=== PATIENT | female | born 1935 | race Caucasian/White ===

== ENCOUNTER 2017-02-10 18:58 | Emergency (ER) | payer OTHER ==
[~2017-02-10] VITALS: Ht 157.5 cm; Wt 75.0 kg
[~2017-02-10 18:58] MED LIST: ADULT LOW DOSE81 M1 PO; ALEVE220 MG PO; ATORVASTATIN CA10 MG PO; Aspirin E.C. PO; CLEOCIN300 MG PO; CLOPIDOGREL75 MG PO; COUMADIN5 MG PO; GENTEAL MILD25 ML BOTH EYES; HYDROCODON-ACE1 EAC7 PO; LASIX40 MG PO; LISINOPRIL-HCT1 EAC3 PO; LOPRESSOR25 MG PO; LOVENOX80 MG/0.8 SC; METFORMIN HCL1000 MG PO; METFORMIN HCL500 MG PO; PERCOCET 5/31 TABLET PO; PLAVIX75 MG PO; PRAVASTATIN SOD80 MG PO; PROTONIX40 MG PO; SENNA-TIME S T1 EACH PO; TYLENOL EXTRA500 MG PO; ZOFRAN4 MG PO
[2017-02-10] MEDS ORDERED: PREDNISONE50 MG PO (22:24)
[2017-02-10] MEDS ORDERED: MOTRIN600 MG PO (22:24)
[2017-02-10] MEDS ORDERED: KEFLEX500 MG PO (22:24)
[2017-02-10] MEDS ORDERED: NORCO 5/3251 TABLET PO (22:24)
[2017-02-10 23:35] VITALS: BP 168/81
== END 2017-02-10 23:35 | disposition home or self-care (01) ==
LOC: EME 18:58
PROC: 2W3FX1Z Immobilization of Left Hand using Splint (ICD-10-PCS; principal; 2017-02-10)
DX: M10.9 Gout, unspecified (principal); M25.542 Pain in joints of left hand
CPT/HCPCS: 73130; 99281; 99284; J3010; J7512

== ENCOUNTER 2017-03-31 13:00 | Inpatient (IN) | payer OTHER ==
[~2017-03-31] VITALS: Ht 157.5 cm; Wt 73.8 kg
[~2017-03-31 13:00] MED LIST changes: +KEFLEX500 MG PO; +MOTRIN600 MG PO; +NORCO 5/3251 TABLET PO; +PREDNISONE50 MG PO
[2017-03-31 13:53] LABS: MCH 28.8 PG (29.0-34.0); MCHC 32.4 G/DL (30.0-36.0); MEAN PLAT.VOLUME 8.8 uM^3 (9.5-12.4); PLATELET COUNT 294 K/uL (156-360); RBC DIS.WIDTH-CV 13.3 % (11.8-14.6); RBC DIS.WIDTH-SD 43.5 % (39-53); RED BLOOD COUNT 3.82 M/uL (3.80-5.20)
[2017-03-31 14:03] LABS: CHLORIDE 99 mEq/L (99-109); POTASSIUM 3.7 mEq/L (3.7-5.4); SODIUM 139 mEq/L (136-147)
[2017-03-31 14:04] LABS: GLUCOSE 148 mg/dL (70-99)
[2017-03-31 14:06] LABS: ANION GAP 14 MEQ/L (2-14)
[2017-03-31 14:08] LABS: GFR ESTIMATE (CALCULATED) 46 mL/min/
[2017-03-31 14:09] LABS: UREA NITROGEN (BUN) 20 mg/dL (9-23)
[2017-03-31 14:16] LABS: INTER. NORMALIZED RATIO 1.1; PROTHROMBIN TIME 11.6 (9.2-11.2); PTT 24.4 (25-32); TROP-I INTERPRETATION NEGATIVE; TROPONIN-I 0.23 ng/mL (0.0-0.30)
[2017-03-31] MEDS ORDERED: CLOPIDOGREL75 MG PO (16:49)
[2017-03-31] MEDS ORDERED: PRAVASTATIN SOD20 MG PO (16:50)
[2017-03-31] MEDS ORDERED: DIGOXIN125 MCG PO (16:51)
[2017-03-31 18:31] LABS: HDL CHOLESTEROL 28 MG/DL (Desirable>=50); LDL CHOLESTEROL 46 mg/dL (Desirable<100); NON-HDL CHOLESTEROL 75 mg/dL (Desirable<160); TOTAL CHOLESTEROL 103 mg/dL (Desirable<200); TRIGLYCERIDES 144 MG/DL (Normal: <150)
[2017-03-31 21:28] VITALS: BP 194/93
[2017-04-01 00:22] VITALS: BP 172/80
[2017-04-01 01:42] LABS: TROP-I INTERPRETATION POSITIVE; TROPONIN-I 1.39 ng/mL (0.0-0.30)
[2017-04-01 05:39] LABS: EOSINOPHIL (%) 1.2 % (0-5); EOSINOPHIL COUNT 0.1 K/uL (0-0.3); HEMATOCRIT 32.9 % (36.0-46.0); IMMATURE GRANULOCYTE (%) 0.4 % (0.0-0.7); INSTRUMENT ABS NEUTROPHIL CT 6.8 K/uL; LYMPHOCYTE COUNT 1.3 K/uL (1.0-2.8); MCH 29.7 PG (29.0-34.0); MCHC 32.8 G/DL (30.0-36.0); MCV 90.4 FL (83-99); MEAN PLAT.VOLUME 9.2 uM^3 (9.5-12.4); MONOCYTE (%) 13.3 % (3-12); MONOCYTE COUNT 1.3 K/uL (0-0.8); NEUTROPHIL (%) 71.1 % (45-76); NEUTROPHIL COUNT 6.8 K/uL (1.8-6.4); PLATELET COUNT 294 K/uL (156-360); RBC DIS.WIDTH-CV 13.2 % (11.8-14.6); RBC DIS.WIDTH-SD 43.9 % (39-53); RED BLOOD COUNT 3.64 M/uL (3.80-5.20); WHITE BLOOD COUNT 9.6 K/uL (4.1-10.2)
[2017-04-01 05:54] LABS: INTER. NORMALIZED RATIO 1.1; PROTHROMBIN TIME 11.7 (9.2-11.2); PTT 24.4 (25-32)
[2017-04-01 05:57] LABS: TROP-I INTERPRETATION POSITIVE; TROPONIN-I 1.49 ng/mL (0.0-0.30)
[2017-04-01 06:05] LABS: ANION GAP 12 MEQ/L (2-14); CHLORIDE 103 MEQ/L (99-109); GFR ESTIMATE (CALCULATED) 42 mL/min/; GLUCOSE 137 mg/dL (70-99); SAMPLE HEMOLYSIS CHECK 0; SAMPLE ICTERIC CHECK 0; SAMPLE LIPEMIA CHECK 0; SODIUM 143 MEQ/L (136-147); UREA NITROGEN (BUN) 19 mg/dL (9-23)
[2017-04-01 06:06] LABS: POTASSIUM 4.5 MEQ/L (3.7-5.4)
[2017-04-01 07:19] LABS: Estimated Average Glucose 174 mg/dL (70-123); HEMOGLOBIN A1c (GLYCOHEMOGLOB) 7.7 % HGB (Below 5.7)
[2017-04-01 08:17] VITALS: BP 153/76
[2017-04-01 12:57] VITALS: BP 175/84
[2017-04-01 13:17] LABS: POINT-OF-CARE METER ID UU13113717
[2017-04-01 14:01] LABS: TROP-I INTERPRETATION POSITIVE; TROPONIN-I 0.99 ng/mL (0.0-0.30)
[2017-04-01 16:05] VITALS: BP 145/80
[2017-04-01 20:03] VITALS: BP 140/64
[2017-04-01 23:36] VITALS: BP 139/69
[2017-04-02 04:09] VITALS: BP 200/92
[2017-04-02 05:50] LABS: HEMATOCRIT 35.3 % (36.0-46.0); MCH 28.5 PG (29.0-34.0); MCV 89.1 FL (83-99); MEAN PLAT.VOLUME 9.2 uM^3 (9.5-12.4); PLATELET COUNT 314 K/uL (156-360); RBC DIS.WIDTH-CV 13.2 % (11.8-14.6); RBC DIS.WIDTH-SD 43.6 % (39-53); RED BLOOD COUNT 3.96 M/uL (3.80-5.20); WHITE BLOOD COUNT 10.4 K/uL (4.1-10.2)
[2017-04-02 06:12] LABS: ANION GAP 12 MEQ/L (2-14); CHLORIDE 100 MEQ/L (99-109); GFR ESTIMATE (CALCULATED) 51 mL/min/; GLUCOSE 119 mg/dL (70-99); POTASSIUM 3.8 MEQ/L (3.7-5.4); SAMPLE HEMOLYSIS CHECK 0; SAMPLE ICTERIC CHECK 0; SAMPLE LIPEMIA CHECK 0; SODIUM 141 MEQ/L (136-147); UREA NITROGEN (BUN) 19 mg/dL (9-23)
[2017-04-02 07:20] VITALS: BP 175/87
[2017-04-02 11:25] VITALS: BP 164/82
[2017-04-02 12:23] LABS: POINT-OF-CARE METER ID UU13113717
[2017-04-02 15:30] VITALS: BP 160/80
[2017-04-02 16:27] LABS: POINT-OF-CARE METER ID UU13113717
[2017-04-02 20:05] VITALS: BP 173/83
[2017-04-02 23:48] VITALS: BP 176/102
[2017-04-03 03:42] VITALS: BP 164/98
[2017-04-03 05:41] LABS: HEMATOCRIT 32.4 % (36.0-46.0); MCH 29.9 PG (29.0-34.0); MCHC 33.6 G/DL (30.0-36.0); MEAN PLAT.VOLUME 9.5 uM^3 (9.5-12.4); PLATELET COUNT 291 K/uL (156-360); RBC DIS.WIDTH-CV 13.4 % (11.8-14.6); RBC DIS.WIDTH-SD 43.8 % (39-53); RED BLOOD COUNT 3.64 M/uL (3.80-5.20); WHITE BLOOD COUNT 10.8 K/uL (4.1-10.2)
[2017-04-03 08:00] LABS: POINT-OF-CARE METER ID UU14174225
[2017-04-03 08:20] VITALS: BP 195/90
[2017-04-03 11:03] VITALS: BP 173/79
[2017-04-03 11:42] LABS: POINT-OF-CARE METER ID UU14174225
[2017-04-03 16:11] LABS: ADD MIUA? YES; BILIRUBIN NEGATIVE; BLOOD SMALL; COLOR YELLOW ((YELLOW)); GLUCOSE (STRIP) NEGATIVE; KETONES 5; LEUKOCYTES LARGE; NITRITE NEGATIVE; PROTEIN (STRIP) 30; SPECIFIC GRAVITY 1.018 (1.000-1.030)
[2017-04-03 16:37] LABS: BACTERIA RARE /HPF; CELLULAR CASTS 0-5 /LPF; EPITHELIAL CELLS 2+ /HPF; HYALINE CASTS 0-5 /LPF; MUCUS TRACE /LPF; RED BLOOD CELLS TNTC /HPF (0-5); UCUL ADDED? YES; WHITE BLOOD CELLS TNTC /HPF (0-5); WHITE BLOOD CELLS CLUMP MANY /HPF (0-5)
[2017-04-03 16:55] LABS: POINT-OF-CARE METER ID UU14174225
[2017-04-03 17:24] VITALS: BP 169/89
[2017-04-03 20:14] VITALS: BP 192/85
[2017-04-03 23:52] VITALS: BP 182/88
[2017-04-04 04:04] VITALS: BP 189/89
[2017-04-04 06:19] LABS: BASOPHIL COUNT 0.1 K/uL (0-0.1); EOSINOPHIL (%) 0.1 % (0-5); HEMATOCRIT 34.1 % (36.0-46.0); IMMATURE GRANULOCYTE (%) 0.8 % (0.0-0.7); IMMATURE GRANULOCYTE COUNT 0.1 K/uL; INSTRUMENT ABS NEUTROPHIL CT 10.3 K/uL; MCH 29.8 PG (29.0-34.0); MCV 87.7 FL (83-99); MEAN PLAT.VOLUME 9.5 uM^3 (9.5-12.4); MONOCYTE (%) 13.1 % (3-12); MONOCYTE COUNT 1.7 K/uL (0-0.8); NEUTROPHIL (%) 78.2 % (45-76); NEUTROPHIL COUNT 10.3 K/uL (1.8-6.4); PLATELET COUNT 334 K/uL (156-360); RBC DIS.WIDTH-CV 13.6 % (11.8-14.6); RBC DIS.WIDTH-SD 43.2 % (39-53); RED BLOOD COUNT 3.89 M/uL (3.80-5.20); WHITE BLOOD COUNT 13.2 K/uL (4.1-10.2)
[2017-04-04 06:40] LABS: ALKALINE PHOSPHATASE 96 IU/L (3-129); ANION GAP 14 MEQ/L (2-14); CHLORIDE 99 MEQ/L (99-109); GFR ESTIMATE (CALCULATED) > 59 mL/min/; GLUCOSE 142 mg/dL (70-99); POTASSIUM 3.3 MEQ/L (3.7-5.4); SAMPLE HEMOLYSIS CHECK 0; SAMPLE ICTERIC CHECK 0; SAMPLE LIPEMIA CHECK 0; SODIUM 138 MEQ/L (136-147); TOTAL BILIRUBIN 0.9 MG/DL (0.0-1.0); UREA NITROGEN (BUN) 16 mg/dL (9-23)
[2017-04-04 08:19] VITALS: BP 148/78
[2017-04-04 11:25] VITALS: BP 130/69
[2017-04-04 12:13] LABS: POINT-OF-CARE METER ID UU14174225
[2017-04-04 14:54] VITALS: BP 149/75
[2017-04-04 16:34] LABS: POINT-OF-CARE METER ID UU14188625
[2017-04-04 19:48] VITALS: BP 146/72
[2017-04-04 23:46] VITALS: BP 194/95
[2017-04-05 04:31] VITALS: BP 187/102
[2017-04-05 06:10] LABS: HEMATOCRIT 34.4 % (36.0-46.0); MCH 28.9 PG (29.0-34.0); MCHC 32.8 G/DL (30.0-36.0); MEAN PLAT.VOLUME 9.2 uM^3 (9.5-12.4); PLATELET COUNT 340 K/uL (156-360); RBC DIS.WIDTH-CV 13.9 % (11.8-14.6); RBC DIS.WIDTH-SD 44.4 % (39-53); RED BLOOD COUNT 3.91 M/uL (3.80-5.20); WHITE BLOOD COUNT 12.1 K/uL (4.1-10.2)
[2017-04-05 07:48] LABS: POINT-OF-CARE METER ID UU13113717
[2017-04-05 08:54] VITALS: BP 168/84
[2017-04-05 09:55] LABS: ANION GAP 14 MEQ/L (2-14); CHLORIDE 101 MEQ/L (99-109); GFR ESTIMATE (CALCULATED) > 59 mL/min/; GLUCOSE 141 mg/dL (70-99); POTASSIUM 3.1 MEQ/L (3.7-5.4); SAMPLE HEMOLYSIS CHECK 0; SAMPLE ICTERIC CHECK 0; SAMPLE LIPEMIA CHECK 0; SODIUM 141 MEQ/L (136-147); UREA NITROGEN (BUN) 15 mg/dL (9-23)
[2017-04-05 10:03] LABS: TROP-I INTERPRETATION INDETERMINATE; TROPONIN-I 0.36 ng/mL (0.0-0.30)
[2017-04-05 12:13] VITALS: BP 152/94
[2017-04-05 12:42] LABS: POINT-OF-CARE METER ID UU13113717
[2017-04-05 15:25] VITALS: BP 189/86
[2017-04-05 16:32] LABS: POINT-OF-CARE METER ID UU14188625
[2017-04-05 17:51] LABS: ANION GAP 13 MEQ/L (2-14); CHLORIDE 100 MEQ/L (99-109); GFR ESTIMATE (CALCULATED) > 59 mL/min/; GLUCOSE 166 mg/dL (70-99); MAGNESIUM 1.8 mg/dl (1.3-2.7); POTASSIUM 3.2 MEQ/L (3.7-5.4); SAMPLE HEMOLYSIS CHECK 0; SAMPLE ICTERIC CHECK 0; SAMPLE LIPEMIA CHECK 0; SODIUM 138 MEQ/L (136-147); UREA NITROGEN (BUN) 18 mg/dL (9-23)
[2017-04-05 20:00] VITALS: BP 188/111
[2017-04-05] MEDS ORDERED: LO-DOSE ASPIRIN81 M1 PO (20:34)
[2017-04-05] MEDS ORDERED: FLONASE16 G1 BOTH NARES (20:34)
[2017-04-05 21:15] LABS: POINT-OF-CARE METER ID UU14188625
[2017-04-05 21:49] LABS: METH RESISTANT S AUREUS PCR NEGATIVE (NEGATIVE)
[2017-04-05 21:51] LABS: PROBE CHECK PASS; SPECIMEN PROCESSING CONTROL PASS
[2017-04-05 23:51] VITALS: BP 163/92
[2017-04-05 23:57] LABS: BASE EXCESS -2.1 mEq/L (-3 to +3); BICARBONATE 23.2 mEq/L (22-26); CARBOXY HGB 2.3 % (0-5); COMMENTS - BLOOD GASES C+; DEVICE NC; METHEMOGLOBIN 1.4 % (0-1.5); O2 FLOW 6 L/MIN; PCO2 41 mm Hg (35-45); PO2 75 mm Hg (80-100); SITE LR; pH 7.36 (7.35-7.45)
[2017-04-05 23:58] LABS: TOTAL RESP RATE 28 resp/min
[2017-04-06] VITALS (7 sets, daily range): BP systolic 106–172; BP diastolic 60–92
[2017-04-06 00:07] LABS: POINT-OF-CARE METER ID UU14188625
[2017-04-06 01:39] LABS: TROP-I INTERPRETATION NEGATIVE; TROPONIN-I 0.28 ng/mL (0.0-0.30)
[2017-04-06 03:32] LABS: BASE EXCESS -0.9 mEq/L (-3 to +3); BICARBONATE 23.5 mEq/L (22-26); METHEMOGLOBIN 1.1 % (0-1.5); PCO2 37 mm Hg (35-45); PO2 72 mm Hg (80-100); pH 7.41 (7.35-7.45)
[2017-04-06 03:33] LABS: COMMENTS - BLOOD GASES A+C+; DEVICE NC; O2 FLOW 3 L/MIN; SITE RR; TOTAL RESP RATE 34 resp/min
[2017-04-06 03:37] LABS: HEMATOCRIT 33.9 % (36.0-46.0); MCH 28.8 PG (29.0-34.0); MCHC 32.7 G/DL (30.0-36.0); MCV 88.1 FL (83-99); MEAN PLAT.VOLUME 9.4 uM^3 (9.5-12.4); PLATELET COUNT 370 K/uL (156-360); RBC DIS.WIDTH-CV 13.9 % (11.8-14.6); RBC DIS.WIDTH-SD 44.7 % (39-53); RED BLOOD COUNT 3.85 M/uL (3.80-5.20); WHITE BLOOD COUNT 12.8 K/uL (4.1-10.2)
[2017-04-06 03:47] LABS: CHLORIDE 105 mEq/L (99-109); SODIUM 142 mEq/L (136-147)
[2017-04-06 03:48] LABS: POTASSIUM 4.2 mEq/L (3.7-5.4)
[2017-04-06 03:50] LABS: ANION GAP 16 MEQ/L (2-14)
[2017-04-06 03:52] LABS: GFR ESTIMATE (CALCULATED) 51 mL/min/; GLUCOSE 287 mg/dL (70-99)
[2017-04-06 03:53] LABS: UREA NITROGEN (BUN) 27 mg/dL (9-23)
[2017-04-06 04:43] LABS: TROP-I INTERPRETATION NEGATIVE; TROPONIN-I 0.28 ng/mL (0.0-0.30)
[2017-04-06 04:57] LABS: DIGOXIN 1.2 ng/mL (0.8-2.0)
[2017-04-06 05:40] LABS: METH RESISTANT S AUREUS PCR NEGATIVE (NEGATIVE)
[2017-04-06 05:41] LABS: PROBE CHECK PASS; SPECIMEN PROCESSING CONTROL PASS
[2017-04-06 06:08] LABS: POINT-OF-CARE METER ID UU14162636; POINT-OF-CARE USER ID ENVSME70
[2017-04-06 12:34] LABS: EOSINOPHIL (%) 0 % (0-5); HEMATOCRIT 32.8 % (36.0-46.0); IMMATURE GRANULOCYTE (%) 0.4 % (0.0-0.7); INSTRUMENT ABS NEUTROPHIL CT 6.7 K/uL; LYMPHOCYTE COUNT 0.4 K/uL (1.0-2.8); MCH 28.7 PG (29.0-34.0); MCHC 32.6 G/DL (30.0-36.0); MCV 87.9 FL (83-99); MEAN PLAT.VOLUME 9.3 uM^3 (9.5-12.4); MONOCYTE (%) 1.8 % (3-12); MONOCYTE COUNT 0.1 K/uL (0-0.8); NEUTROPHIL (%) 92.5 % (45-76); NEUTROPHIL COUNT 6.7 K/uL (1.8-6.4); PLATELET COUNT 341 K/uL (156-360); RBC DIS.WIDTH-CV 13.9 % (11.8-14.6); RBC DIS.WIDTH-SD 44.5 % (39-53); RED BLOOD COUNT 3.73 M/uL (3.80-5.20); WHITE BLOOD COUNT 7.2 K/uL (4.1-10.2)
[2017-04-06 12:39] LABS: POINT-OF-CARE METER ID UU14162636
[2017-04-06 17:39] LABS: POINT-OF-CARE METER ID UU14162636
[2017-04-06 22:15] LABS: POINT-OF-CARE METER ID UU14162636; POINT-OF-CARE USER ID RADDRS44
[2017-04-07] VITALS: BP 166/72
[2017-04-07 04:00] VITALS: BP 158/79
[2017-04-07 07:37] VITALS: BP 152/86
[2017-04-07 08:13] LABS: POINT-OF-CARE METER ID UU14188625
[2017-04-07 11:16] VITALS: BP 163/89
[2017-04-07 11:33] LABS: POINT-OF-CARE METER ID UU14174225
[2017-04-07 15:10] VITALS: BP 166/83
[2017-04-07 18:43] VITALS: BP 152/83
[2017-04-07 21:12] LABS: POINT-OF-CARE METER ID UU14188625
[2017-04-08] VITALS (7 sets, daily range): BP systolic 130–184; BP diastolic 80–90
[2017-04-08 06:04] LABS: EOSINOPHIL (%) 0 % (0-5); HEMATOCRIT 34.8 % (36.0-46.0); IMMATURE GRANULOCYTE (%) 0.8 % (0.0-0.7); IMMATURE GRANULOCYTE COUNT 0.1 K/uL; INSTRUMENT ABS NEUTROPHIL CT 13.1 K/uL; LYMPHOCYTE COUNT 0.6 K/uL (1.0-2.8); MCH 28.5 PG (29.0-34.0); MCHC 31.9 G/DL (30.0-36.0); MCV 89.5 FL (83-99); MEAN PLAT.VOLUME 9.3 uM^3 (9.5-12.4); MONOCYTE (%) 4.4 % (3-12); MONOCYTE COUNT 0.6 K/uL (0-0.8); NEUTROPHIL (%) 90.5 % (45-76); NEUTROPHIL COUNT 13.1 K/uL (1.8-6.4); PLATELET COUNT 427 K/uL (156-360); RBC DIS.WIDTH-CV 14.6 % (11.8-14.6); RBC DIS.WIDTH-SD 46.9 % (39-53); RED BLOOD COUNT 3.89 M/uL (3.80-5.20); WHITE BLOOD COUNT 14.4 K/uL (4.1-10.2)
[2017-04-08 07:15] LABS: ANION GAP 17 MEQ/L (2-14); CHLORIDE 106 MEQ/L (99-109); GFR ESTIMATE (CALCULATED) 42 mL/min/; GLUCOSE 311 mg/dL (70-99); POTASSIUM 4.9 MEQ/L (3.7-5.4); SAMPLE HEMOLYSIS CHECK 0; SAMPLE ICTERIC CHECK 0; SAMPLE LIPEMIA CHECK 0; SODIUM 145 MEQ/L (136-147); UREA NITROGEN (BUN) 37 mg/dL (9-23)
[2017-04-09 03:49] VITALS: BP 185/90
[2017-04-09 07:51] VITALS: BP 154/89
[2017-04-09 11:02] VITALS: BP 139/89
[2017-04-09 16:01] VITALS: BP 150/88
[2017-04-09 17:01] LABS: POINT-OF-CARE METER ID UU14188625
[2017-04-09 19:51] VITALS: BP 156/86
[2017-04-09 22:25] LABS: POINT-OF-CARE METER ID UU13113717
[2017-04-09 23:42] VITALS: BP 142/82
[2017-04-10 04:07] VITALS: BP 179/97
[2017-04-10 04:12] VITALS: BP 162/79
[2017-04-10 06:01] LABS: HEMATOCRIT 38.8 % (36.0-46.0); MCH 28.7 PG (29.0-34.0); MCHC 31.2 G/DL (30.0-36.0); MCV 92.2 FL (83-99); MEAN PLAT.VOLUME 9.3 uM^3 (9.5-12.4); NRBC (%) 0.3 /100 WBC (0-0); PLATELET COUNT 425 K/uL (156-360); RBC DIS.WIDTH-CV 15.1 % (11.8-14.6); RED BLOOD COUNT 4.21 M/uL (3.80-5.20); WHITE BLOOD COUNT 12.1 K/uL (4.1-10.2)
[2017-04-10 07:30] LABS: POINT-OF-CARE METER ID UU14188625
[2017-04-10 07:45] VITALS: BP 152/84; BP 188/110
[2017-04-10 11:28] VITALS: BP 160/96
[2017-04-10 11:30] LABS: POINT-OF-CARE METER ID UU14174225
[2017-04-10] MEDS ORDERED: AMOX TR-K CLV1 EAC4 PO (11:30)
[2017-04-10] MEDS ORDERED: FUROSEMIDE20 MG PO (11:31)
[2017-04-10] MEDS ORDERED: NOVOLOG PE100 UNITS/ SC (11:40)
[2017-04-10] MEDS ORDERED: ELIQUIS2.5 MG PO (11:41)
[2017-04-10] MEDS ORDERED: RISPERIDONE0.5 MG PO (11:45)
[2017-04-10] MEDS ORDERED: K-DUR20 MEQ PO (11:46)
[2017-04-10 15:47] VITALS: BP 168/97
[2017-04-10 16:51] LABS: POINT-OF-CARE METER ID UU14188625
== END 2017-04-10 17:44 | DRG 64 ==
LOC: EME 13:00 → 5SOUTH 16:44 → EDOF 16:44 → 5SOUTH 19:26 → 4WEST 04-06 03:57 → 5SOUTH 04-06 21:58
PROVIDERS: Emergency Medicine; Hospitalist; Internal Medicine; Nurse Practitioner Adult Health; Physician Assistant Medical
DX: I63.113 Cerebral infarction due to embolism of bilateral vertebral arteries (principal); G93.41 Metabolic encephalopathy; I63.413 Cerebral infarction due to embolism of bilateral middle cerebral arteries; I63.439 Cerebral infarction due to embolism of unspecified posterior cerebral artery; I63.442 Cerebral infarction due to embolism of left cerebellar artery; J18.9 Pneumonia, unspecified organism; F01.51 Vascular dementia, unspecified severity, with behavioral disturbance; I50.30 Unspecified diastolic (congestive) heart failure; J98.11 Atelectasis; J90 Pleural effusion, not elsewhere classified; L03.119 Cellulitis of unspecified part of limb; N39.0 Urinary tract infection, site not specified; J80 Acute respiratory distress syndrome; I24.8 Other forms of acute ischemic heart disease; F41.0 Panic disorder [episodic paroxysmal anxiety]; I34.0 Nonrheumatic mitral (valve) insufficiency; I35.0 Nonrheumatic aortic (valve) stenosis; I25.5 Ischemic cardiomyopathy; I27.2 Other secondary pulmonary hypertension; I48.2 Chronic atrial fibrillation; R29.818 Other symptoms and signs involving the nervous system; R41.89 Other symptoms and signs involving cognitive functions and awareness; I48.0 Paroxysmal atrial fibrillation; I25.2 Old myocardial infarction; E11.9 Type 2 diabetes mellitus without complications; E78.5 Hyperlipidemia, unspecified; I69.322 Dysarthria following cerebral infarction; E87.6 Hypokalemia; I11.0 Hypertensive heart disease with heart failure; I70.0 Atherosclerosis of aorta; I73.9 Peripheral vascular disease, unspecified; I87.2 Venous insufficiency (chronic) (peripheral); I87.8 Other specified disorders of veins; I89.0 Lymphedema, not elsewhere classified; K21.9 Gastro-esophageal reflux disease without esophagitis; R13.10 Dysphagia, unspecified; R47.01 Aphasia; Z79.01 Long term (current) use of anticoagulants; Z79.02 Long term (current) use of antithrombotics/antiplatelets; Z79.4 Long term (current) use of insulin; I25.10 Atherosclerotic heart disease of native coronary artery without angina pectoris; Z79.82 Long term (current) use of aspirin; Z79.84 Long term (current) use of oral hypoglycemic drugs; Z95.5 Presence of coronary angioplasty implant and graft
CPT/HCPCS: 36600; 70450; 70544; 70549; 70551; 71010; 71020; 80048; 80048 91; 80053; 80061; 80162; 81003; 82803; 82948; 83036; 83605; 83735; 83880; 84145 90; 84484; 85025; 85027; 85610; 85730; 87040; 87086; 87641; 92507 GN; 92526 GN; 92610 GN; 93005; 93306; 93970; 94010; 94640; 94640 76; 94667; 94668; 94799; 97530 GP; 97532 GN; 99202; 99281; 99285; J0360; J0690; J1160; J1630; J1644; J1815; J1940; J2270; J2405; J2543; J2920; J2930; J7030; J7050

== ENCOUNTER 2017-04-16 20:54 | Emergency (ER) | payer OTHER ==
[~2017-04-16] VITALS: Ht 157.5 cm; Wt 72.2 kg
[~2017-04-16 20:54] MED LIST changes: +AMOX TR-K CLV1 EAC4 PO; +DIGOXIN125 MCG PO; +ELIQUIS2.5 MG PO; +FLONASE16 G1 BOTH NARES; +FUROSEMIDE20 MG PO; +K-DUR20 MEQ PO; +LO-DOSE ASPIRIN81 M1 PO; +NOVOLOG PE100 UNITS/ SC; +PRAVASTATIN SOD20 MG PO; +RISPERIDONE0.5 MG PO
[2017-04-16 20:57] VITALS: BP 157/82
[2017-04-16 21:46] LABS: EOSINOPHIL (%) 0.4 % (0-5); EOSINOPHIL COUNT 0.1 K/uL (0-0.3); HEMATOCRIT 39.6 % (36.0-46.0); IMMATURE GRANULOCYTE (%) 1.2 % (0.0-0.7); IMMATURE GRANULOCYTE COUNT 0.2 K/uL; INSTRUMENT ABS NEUTROPHIL CT 13.9 K/uL; LYMPHOCYTE COUNT 0.6 K/uL (1.0-2.8); MCH 28.7 PG (29.0-34.0); MCHC 31.8 G/DL (30.0-36.0); MCV 90.2 FL (83-99); MONOCYTE (%) 8.4 % (3-12); MONOCYTE COUNT 1.4 K/uL (0-0.8); NEUTROPHIL COUNT 13.9 K/uL (1.8-6.4); RBC DIS.WIDTH-SD 48.6 % (39-53); RED BLOOD COUNT 4.39 M/uL (3.80-5.20); WHITE BLOOD COUNT 16.2 K/uL (4.1-10.2)
[2017-04-16 22:00] LABS: CHLORIDE 99 mEq/L (99-109); POTASSIUM 4.1 mEq/L (3.7-5.4); SODIUM 140 mEq/L (136-147)
[2017-04-16 22:02] LABS: GLUCOSE 180 mg/dL (70-99)
[2017-04-16 22:03] LABS: ANION GAP 10 MEQ/L (2-14)
[2017-04-16 22:04] LABS: TOTAL BILIRUBIN 0.7 mg/dL (0.0-1.0)
[2017-04-16 22:06] LABS: ALKALINE PHOSPHATASE 111 IU/L (3-129); GFR ESTIMATE (CALCULATED) 46 mL/min/
[2017-04-16 22:07] LABS: UREA NITROGEN (BUN) 22 mg/dL (9-23)
[2017-04-16 22:23] LABS: HEMATOLOGY COMMENT 1 SN; MEAN PLAT.VOLUME 9.5 uM^3 (9.5-12.4); PLAT.SUFFICIENCY ADEQUATE
[2017-04-16 22:24] LABS: PLATELET COUNT 290 K/uL (156-360)
[2017-04-16 22:26] LABS: ADD MIUA? YES; BILIRUBIN NEGATIVE; BLOOD MODERATE; COLOR YELLOW ((YELLOW)); GLUCOSE (STRIP) NEGATIVE; KETONES NEGATIVE; LEUKOCYTES NEGATIVE; NITRITE NEGATIVE; PROTEIN (STRIP) 30; SPECIFIC GRAVITY 1.011 (1.000-1.030); UROBILINOGEN 0.2 MG/DL (0.2-1.0)
[2017-04-16 22:30] LABS: BACTERIA NONE SEEN /HPF; EPITHELIAL CELLS RARE /HPF; HYALINE CASTS 0-5 /LPF; MUCUS TRACE /LPF; UCUL ADDED? NO; WHITE BLOOD CELLS 0-5 /HPF (0-5)
== END 2017-04-17 00:27 ==
LOC: EME → EDBD 20:54 → EME 20:54
PROVIDERS: Emergency Medicine
DX: S01.111A Laceration without foreign body of right eyelid and periocular area, initial encounter (principal); M25.551 Pain in right hip; W01.10XA Fall on same level from slipping, tripping and stumbling with subsequent striking against unspecified object, initial encounter; I48.91 Unspecified atrial fibrillation; I10 Essential (primary) hypertension; K21.9 Gastro-esophageal reflux disease without esophagitis; E78.5 Hyperlipidemia, unspecified; E11.9 Type 2 diabetes mellitus without complications; Z98.61 Coronary angioplasty status
CPT/HCPCS: 70450; 71010; 71020; 73502; 80053; 81003; 85025; 93005

== ENCOUNTER 2017-06-10 13:00 | Inpatient (IN) | payer OTHER ==
[~2017-06-10] VITALS: Ht 157.5 cm; Wt 74.2 kg
[2017-06-10 13:42] LABS: EOSINOPHIL (%) 0.1 % (0-5); HEMATOCRIT 32.7 % (36.0-46.0); IMMATURE GRANULOCYTE (%) 0.4 % (0.0-0.7); IMMATURE GRANULOCYTE COUNT 0.1 K/uL; LYMPHOCYTE COUNT 0.9 K/uL (1.0-2.8); MCHC 31.8 G/DL (30.0-36.0); MCV 91.1 FL (83-99); MEAN PLAT.VOLUME 9.1 uM^3 (9.5-12.4); MONOCYTE (%) 5.2 % (3-12); MONOCYTE COUNT 0.8 K/uL (0-0.8); NEUTROPHIL (%) 88.6 % (45-76); PLATELET COUNT 345 K/uL (156-360); RBC DIS.WIDTH-CV 15.2 % (11.8-14.6); RBC DIS.WIDTH-SD 51.5 % (39-53); RED BLOOD COUNT 3.59 M/uL (3.80-5.20); WHITE BLOOD COUNT 15.8 K/uL (4.1-10.2)
[2017-06-10 13:50] LABS: ADD MIUA? YES; BILIRUBIN NEGATIVE; BLOOD MODERATE; COLOR STRAW ((YELLOW)); GLUCOSE (STRIP) NEGATIVE; KETONES NEGATIVE; LEUKOCYTES MODERATE; NITRITE NEGATIVE; PROTEIN (STRIP) NEGATIVE; UROBILINOGEN 0.2 MG/DL (0.2-1.0)
[2017-06-10 13:51] LABS: CHLORIDE 98 mEq/L (99-109); POTASSIUM 4.1 mEq/L (3.7-5.4); SODIUM 136 mEq/L (136-147)
[2017-06-10 13:53] LABS: GLUCOSE 273 mg/dL (70-99)
[2017-06-10 13:54] LABS: ANION GAP 13 MEQ/L (2-14)
[2017-06-10 13:55] LABS: TOTAL BILIRUBIN 0.7 mg/dL (0.0-1.0)
[2017-06-10 13:57] LABS: ALKALINE PHOSPHATASE 122 IU/L (3-129); GFR ESTIMATE (CALCULATED) 35 mL/min/
[2017-06-10 13:58] LABS: UREA NITROGEN (BUN) 38 mg/dL (9-23)
[2017-06-10 14:01] LABS: BACTERIA RARE /HPF; EPITHELIAL CELLS RARE /HPF; MUCUS NONE SEEN /LPF; RED BLOOD CELLS 0-5 /HPF (0-5); UCUL ADDED? YES; WHITE BLOOD CELLS 15-20 /HPF (0-5)
[2017-06-10 14:05] LABS: TROP-I INTERPRETATION NEGATIVE; TROPONIN-I 0.03 ng/mL (0.0-0.30)
[2017-06-10] MEDS ORDERED: ELIQUIS5 MG PO (16:45)
[2017-06-10] MEDS ORDERED: KLOR-CON M2020 MEQ PO (16:50)
[2017-06-10] MEDS ORDERED: FUROSEMIDE40 MG PO (16:52)
[2017-06-10] MEDS ORDERED: TRAMADOL HCL50 MG PO (16:54)
[2017-06-10] MEDS ORDERED: HYDROCORTISON28.4 GM TP (16:54)
[2017-06-10] MEDS ORDERED: SERTRALINE HCL25 MG PO (16:55)
[2017-06-10] MEDS ORDERED: COLACE100 MG PO (16:56)
[2017-06-10 17:02] LABS: DIGOXIN 1.1 ng/mL (0.8-2.0)
[2017-06-10 19:30] LABS: TROP-I INTERPRETATION NEGATIVE; TROPONIN-I 0.04 ng/mL (0.0-0.30)
[2017-06-10 22:54] LABS: POINT-OF-CARE METER ID UU13113747
[2017-06-11 00:12] VITALS: BP 130/79
[2017-06-11 01:20] LABS: TROP-I INTERPRETATION NEGATIVE; TROPONIN-I 0.06 ng/mL (0.0-0.30)
[2017-06-11 04:50] VITALS: BP 130/89
[2017-06-11 07:34] LABS: EOSINOPHIL (%) 0.1 % (0-5); HEMATOCRIT 29.2 % (36.0-46.0); IMMATURE GRANULOCYTE (%) 0.6 % (0.0-0.7); IMMATURE GRANULOCYTE COUNT 0.1 K/uL; INSTRUMENT ABS NEUTROPHIL CT 11.8 K/uL; LYMPHOCYTE COUNT 1.7 K/uL (1.0-2.8); MCH 30.1 PG (29.0-34.0); MCHC 31.5 G/DL (30.0-36.0); MEAN PLAT.VOLUME 9.7 uM^3 (9.5-12.4); MONOCYTE (%) 11.3 % (3-12); MONOCYTE COUNT 1.7 K/uL (0-0.8); NEUTROPHIL COUNT 11.8 K/uL (1.8-6.4); PLATELET COUNT 268 K/uL (156-360); RBC DIS.WIDTH-CV 15.8 % (11.8-14.6); RBC DIS.WIDTH-SD 54.5 % (39-53); RED BLOOD COUNT 3.06 M/uL (3.80-5.20); WHITE BLOOD COUNT 15.3 K/uL (4.1-10.2)
[2017-06-11 07:41] LABS: MCV 95.4 FL (83-99)
[2017-06-11 07:56] LABS: ANION GAP 10 MEQ/L (2-14); CHLORIDE 104 MEQ/L (99-109); GFR ESTIMATE (CALCULATED) 42 mL/min/; GLUCOSE 212 mg/dL (70-99); SAMPLE HEMOLYSIS CHECK 0; SAMPLE ICTERIC CHECK 0; SAMPLE LIPEMIA CHECK 0; SODIUM 140 MEQ/L (136-147); UREA NITROGEN (BUN) 30 mg/dL (9-23)
[2017-06-11 08:08] LABS: TROP-I INTERPRETATION NEGATIVE; TROPONIN-I 0.06 ng/mL (0.0-0.30)
[2017-06-11 08:41] LABS: POINT-OF-CARE METER ID UU13113698
[2017-06-11 08:42] VITALS: BP 128/91
[2017-06-11 11:49] LABS: POINT-OF-CARE METER ID UU13113698; POINT-OF-CARE USER ID ENVKC36
[2017-06-11 12:00] VITALS: BP 116/57
[2017-06-11 15:50] VITALS: BP 147/69
[2017-06-11 16:34] LABS: POINT-OF-CARE METER ID UU13113698; POINT-OF-CARE USER ID ENVKC36
[2017-06-11 20:35] VITALS: BP 125/60
[2017-06-12] VITALS: BP 137/75
[2017-06-12 03:02] VITALS: BP 164/76
[2017-06-12 05:23] LABS: EOSINOPHIL (%) 0.2 % (0-5); HEMATOCRIT 29.3 % (36.0-46.0); IMMATURE GRANULOCYTE (%) 0.7 % (0.0-0.7); IMMATURE GRANULOCYTE COUNT 0.1 K/uL; INSTRUMENT ABS NEUTROPHIL CT 11.3 K/uL; LYMPHOCYTE COUNT 1.9 K/uL (1.0-2.8); MCH 30.1 PG (29.0-34.0); MCHC 32.4 G/DL (30.0-36.0); MCV 92.7 FL (83-99); MEAN PLAT.VOLUME 9.8 uM^3 (9.5-12.4); MONOCYTE (%) 12.4 % (3-12); MONOCYTE COUNT 1.9 K/uL (0-0.8); NEUTROPHIL (%) 73.9 % (45-76); NEUTROPHIL COUNT 11.3 K/uL (1.8-6.4); PLATELET COUNT 257 K/uL (156-360); RBC DIS.WIDTH-CV 15.4 % (11.8-14.6); RBC DIS.WIDTH-SD 52.6 % (39-53); RED BLOOD COUNT 3.16 M/uL (3.80-5.20); WHITE BLOOD COUNT 15.3 K/uL (4.1-10.2)
[2017-06-12 05:48] LABS: ALKALINE PHOSPHATASE 87 IU/L (3-129); ANION GAP 12 MEQ/L (2-14); CHLORIDE 102 MEQ/L (99-109); GFR ESTIMATE (CALCULATED) 42 mL/min/; GLUCOSE 171 mg/dL (70-99); POTASSIUM 3.9 MEQ/L (3.7-5.4); SAMPLE HEMOLYSIS CHECK 0; SAMPLE ICTERIC CHECK 0; SAMPLE LIPEMIA CHECK 0; SODIUM 138 MEQ/L (136-147); TOTAL BILIRUBIN 1.5 MG/DL (0.0-1.0); UREA NITROGEN (BUN) 28 mg/dL (9-23)
[2017-06-12 07:31] VITALS: BP 136/73
[2017-06-12 07:52] LABS: POINT-OF-CARE METER ID UU13113698; POINT-OF-CARE USER ID ENVKC36
[2017-06-12 11:59] LABS: POINT-OF-CARE METER ID UU14174216; POINT-OF-CARE USER ID ENVKC36
[2017-06-12 12:00] VITALS: BP 154/71
[2017-06-12 16:00] VITALS: BP 148/67
[2017-06-12 16:37] LABS: POINT-OF-CARE METER ID UU13113698; POINT-OF-CARE USER ID ENVKC36
[2017-06-12 19:39] VITALS: BP 150/72
[2017-06-13] VITALS (7 sets, daily range): BP systolic 123–176; BP diastolic 65–95
[2017-06-13 05:51] LABS: EOSINOPHIL (%) 0.6 % (0-5); EOSINOPHIL COUNT 0.1 K/uL (0-0.3); HEMATOCRIT 26.8 % (36.0-46.0); IMMATURE GRANULOCYTE (%) 0.8 % (0.0-0.7); IMMATURE GRANULOCYTE COUNT 0.1 K/uL; INSTRUMENT ABS NEUTROPHIL CT 8.8 K/uL; LYMPHOCYTE COUNT 1.5 K/uL (1.0-2.8); MCH 30.1 PG (29.0-34.0); MCHC 32.8 G/DL (30.0-36.0); MCV 91.8 FL (83-99); MEAN PLAT.VOLUME 9.7 uM^3 (9.5-12.4); MONOCYTE (%) 9.9 % (3-12); MONOCYTE COUNT 1.1 K/uL (0-0.8); NEUTROPHIL (%) 75.8 % (45-76); NEUTROPHIL COUNT 8.8 K/uL (1.8-6.4); PLATELET COUNT 273 K/uL (156-360); RBC DIS.WIDTH-CV 15.3 % (11.8-14.6); RBC DIS.WIDTH-SD 51.6 % (39-53); RED BLOOD COUNT 2.92 M/uL (3.80-5.20); WHITE BLOOD COUNT 11.5 K/uL (4.1-10.2)
[2017-06-13 06:18] LABS: ALKALINE PHOSPHATASE 82 IU/L (3-129); ANION GAP 12 MEQ/L (2-14); CHLORIDE 102 MEQ/L (99-109); GFR ESTIMATE (CALCULATED) 42 mL/min/; GLUCOSE 161 mg/dL (70-99); POTASSIUM 3.2 MEQ/L (3.7-5.4); SAMPLE HEMOLYSIS CHECK 0; SAMPLE ICTERIC CHECK 0; SAMPLE LIPEMIA CHECK 0; SODIUM 138 MEQ/L (136-147); TOTAL BILIRUBIN 1.2 MG/DL (0.0-1.0); UREA NITROGEN (BUN) 28 mg/dL (9-23)
[2017-06-13 08:06] LABS: POINT-OF-CARE METER ID UU14174216
[2017-06-13 11:07] LABS: POINT-OF-CARE METER ID UU14174216
[2017-06-13 15:58] LABS: POINT-OF-CARE METER ID UU14174216
[2017-06-13 21:10] LABS: POINT-OF-CARE METER ID UU14174216
[2017-06-14 04:07] VITALS: BP 164/72
[2017-06-14 04:43] LABS: EOSINOPHIL (%) 0.7 % (0-5); EOSINOPHIL COUNT 0.1 K/uL (0-0.3); HEMATOCRIT 30.7 % (36.0-46.0); IMM.RETIC FRACTION 22.6 % (3-19); IMMATURE GRANULOCYTE (%) 1.1 % (0.0-0.7); IMMATURE GRANULOCYTE COUNT 0.1 K/uL; LYMPHOCYTE COUNT 1.5 K/uL (1.0-2.8); MCH 29.2 PG (29.0-34.0); MCHC 31.9 G/DL (30.0-36.0); MCV 91.4 FL (83-99); MEAN PLAT.VOLUME 9.5 uM^3 (9.5-12.4); MONOCYTE (%) 11.3 % (3-12); MONOCYTE COUNT 1.1 K/uL (0-0.8); NEUTROPHIL (%) 71.1 % (45-76); PLATELET COUNT 324 K/uL (156-360); RBC DIS.WIDTH-CV 15.1 % (11.8-14.6); RBC DIS.WIDTH-SD 51.1 % (39-53); RED BLOOD COUNT 3.36 M/uL (3.80-5.20); RETIC HGB EQUIVALENT 24.6 (28-36); RETICULOCYTE COUNT 2.3 % (0.5-1.8); WHITE BLOOD COUNT 9.9 K/uL (4.1-10.2)
[2017-06-14 04:53] LABS: CHLORIDE 103 mEq/L (99-109); POTASSIUM 3.6 mEq/L (3.7-5.4); SODIUM 140 mEq/L (136-147)
[2017-06-14 04:54] LABS: GLUCOSE 165 mg/dL (70-99)
[2017-06-14 04:56] LABS: ANION GAP 15 MEQ/L (2-14)
[2017-06-14 04:58] LABS: GFR ESTIMATE (CALCULATED) 42 mL/min/
[2017-06-14 04:59] LABS: UREA NITROGEN (BUN) 29 mg/dL (9-23)
[2017-06-14 08:17] LABS: FERRITIN 141 NG/ML (10-291)
[2017-06-14 08:23] VITALS: BP 159/79
[2017-06-14 09:56] LABS: IRON 20 MCG/DL (35-150)
[2017-06-14 11:31] VITALS: BP 163/75
[2017-06-14] MEDS ORDERED: DUONEB 2.5-0.5 M3 ML AEROSOL (15:36)
[2017-06-14] MEDS ORDERED: FUROSEMIDE80 MG PO (15:37)
[2017-06-14] MEDS ORDERED: Vitamin B-12 PO (15:37)
[2017-06-14] MEDS ORDERED: MAXIPIME1 GM IV (15:39)
[2017-06-14 16:33] LABS: POINT-OF-CARE METER ID UU13113698
[2017-06-14 18:00] VITALS: BP 158/82
[2017-06-17 11:32] LABS: POC NON-PRINT COM 1 ND
== END 2017-06-14 18:36 | DRG 872 ==
LOC: EME → EDBD 13:00 → EME 13:00 → EDOF 16:11 → 4EAST 16:11 → ENRESERV 16:12 → 4EAST 23:39
PROVIDERS: Emergency Medicine; Hospitalist; Internal Medicine Cardiovascular Disease
DX: A41.50 Gram-negative sepsis, unspecified (principal); R65.20 Severe sepsis without septic shock; N17.9 Acute kidney failure, unspecified; N39.0 Urinary tract infection, site not specified; L03.115 Cellulitis of right lower limb; L03.116 Cellulitis of left lower limb; E87.70 Fluid overload, unspecified; E87.6 Hypokalemia; J98.11 Atelectasis; I11.0 Hypertensive heart disease with heart failure; I50.32 Chronic diastolic (congestive) heart failure; L89.329 Pressure ulcer of left buttock, unspecified stage; I87.8 Other specified disorders of veins; L97.919 Non-pressure chronic ulcer of unspecified part of right lower leg with unspecified severity; I27.2 Other secondary pulmonary hypertension; I08.0 Rheumatic disorders of both mitral and aortic valves; I48.1 Persistent atrial fibrillation; I48.2 Chronic atrial fibrillation; Z91.19 Patient's noncompliance with other medical treatment and regimen; S80.821A Blister (nonthermal), right lower leg, initial encounter; S80.822A Blister (nonthermal), left lower leg, initial encounter; D64.9 Anemia, unspecified; E11.9 Type 2 diabetes mellitus without complications; E78.5 Hyperlipidemia, unspecified; I25.10 Atherosclerotic heart disease of native coronary artery without angina pectoris; I25.2 Old myocardial infarction; K21.9 Gastro-esophageal reflux disease without esophagitis; G43.909 Migraine, unspecified, not intractable, without status migrainosus; I44.7 Left bundle-branch block, unspecified; R21 Rash and other nonspecific skin eruption; R32 Unspecified urinary incontinence; E66.9 Obesity, unspecified; Z68.31 Body mass index [BMI] 31.0-31.9, adult; Z86.73 Personal history of transient ischemic attack (TIA), and cerebral infarction without residual deficits; Z95.5 Presence of coronary angioplasty implant and graft
CPT/HCPCS: 71020; 73590; 80048; 80053; 80162; 81003; 82272; 82607; 82728; 82746; 82948; 83540; 83605; 83880; 84466; 84484; 85025; 85045; 87040; 87077; 87086 GA; 87186; 87801; 90686; 93005; 93925; 94640; 94760; 94799; 97530 GO; 97530 GP; 99202; 99281; 99285; J0692; J1160; J1815; J1940; J2543; J3370; J7030; J7050

== ENCOUNTER 2017-08-12 16:11 | Inpatient (IN) | payer OTHER ==
[~2017-08-12] VITALS: Ht 157.5 cm; Wt 71.3 kg
[~2017-08-12 16:11] MED LIST changes: +COLACE100 MG PO; +DUONEB 2.5-0.5 M3 ML AEROSOL; +ELIQUIS5 MG PO; +FUROSEMIDE40 MG PO; +FUROSEMIDE80 MG PO; +HYDROCORTISON28.4 GM TP; +KLOR-CON M2020 MEQ PO; +MAXIPIME1 GM IV; +SERTRALINE HCL25 MG PO; +TRAMADOL HCL50 MG PO; +Vitamin B-12 PO
[2017-08-12 17:10] LABS: BASOPHIL COUNT 0.1 K/uL (0-0.1); EOSINOPHIL (%) 2.1 % (0-5); EOSINOPHIL COUNT 0.3 K/uL (0-0.3); HEMATOCRIT 35.5 % (36.0-46.0); IMMATURE GRANULOCYTE (%) 0.5 % (0.0-0.7); IMMATURE GRANULOCYTE COUNT 0.1 K/uL; INSTRUMENT ABS NEUTROPHIL CT 8.8 K/uL; LYMPHOCYTE COUNT 1.7 K/uL (1.0-2.8); MCH 27.8 PG (29.0-34.0); MCHC 31.5 G/DL (30.0-36.0); MCV 88.1 FL (83-99); MEAN PLAT.VOLUME 9.2 uM^3 (9.5-12.4); MONOCYTE (%) 10.1 % (3-12); MONOCYTE COUNT 1.2 K/uL (0-0.8); NEUTROPHIL (%) 72.3 % (45-76); NEUTROPHIL COUNT 8.8 K/uL (1.8-6.4); PLATELET COUNT 421 K/uL (156-360); RBC DIS.WIDTH-CV 16.5 % (11.8-14.6); RBC DIS.WIDTH-SD 53.6 % (39-53); RED BLOOD COUNT 4.03 M/uL (3.80-5.20); WHITE BLOOD COUNT 12.1 K/uL (4.1-10.2)
[2017-08-12 17:28] LABS: CHLORIDE 100 mEq/L (99-109); POTASSIUM 4.3 mEq/L (3.7-5.4); SODIUM 138 mEq/L (136-147)
[2017-08-12 17:29] LABS: GLUCOSE 264 mg/dL (70-99)
[2017-08-12 17:31] LABS: ANION GAP 12 MEQ/L (2-14)
[2017-08-12 17:33] LABS: GFR ESTIMATE (CALCULATED) 35 mL/min/
[2017-08-12 17:34] LABS: UREA NITROGEN (BUN) 27 mg/dL (9-23)
[2017-08-12 18:13] LABS: TROP-I INTERPRETATION NEGATIVE; TROPONIN-I 0.01 ng/mL (0.0-0.30)
[2017-08-12] MEDS ORDERED: VITAMIN B-121000 MCG PO (20:51)
[2017-08-12] MEDS ORDERED: REMERON15 M2 PO (20:51)
[2017-08-12] MEDS ORDERED: ZESTORETIC 20-1 EAC2 PO (20:52)
[2017-08-12 22:45] VITALS: BP 143/67
[2017-08-12 23:02] LABS: POINT-OF-CARE METER ID UU14314084
[2017-08-13 03:35] VITALS: BP 147/62
[2017-08-13 05:47] LABS: BASOPHIL COUNT 0.1 K/uL (0-0.1); EOSINOPHIL (%) 2.7 % (0-5); EOSINOPHIL COUNT 0.3 K/uL (0-0.3); HEMATOCRIT 31.4 % (36.0-46.0); IMMATURE GRANULOCYTE (%) 0.6 % (0.0-0.7); IMMATURE GRANULOCYTE COUNT 0.1 K/uL; INSTRUMENT ABS NEUTROPHIL CT 6.5 K/uL; LYMPHOCYTE COUNT 2.6 K/uL (1.0-2.8); MCH 27.5 PG (29.0-34.0); MCHC 31.5 G/DL (30.0-36.0); MCV 87.2 FL (83-99); MEAN PLAT.VOLUME 9.3 uM^3 (9.5-12.4); MONOCYTE (%) 13.5 % (3-12); MONOCYTE COUNT 1.5 K/uL (0-0.8); NEUTROPHIL (%) 58.9 % (45-76); NEUTROPHIL COUNT 6.5 K/uL (1.8-6.4); PLATELET COUNT 361 K/uL (156-360); RBC DIS.WIDTH-CV 16.5 % (11.8-14.6); RBC DIS.WIDTH-SD 52.9 % (39-53)
[2017-08-13 06:13] LABS: ANION GAP 8 MEQ/L (2-14); CHLORIDE 99 MEQ/L (99-109); GFR ESTIMATE (CALCULATED) 51 mL/min/; GLUCOSE 157 mg/dL (70-99); MAGNESIUM 1.9 mg/dl (1.3-2.7); POTASSIUM 4.1 MEQ/L (3.7-5.4); SAMPLE HEMOLYSIS CHECK 0; SAMPLE ICTERIC CHECK 0; SAMPLE LIPEMIA CHECK 0; SODIUM 140 MEQ/L (136-147); UREA NITROGEN (BUN) 26 mg/dL (9-23)
[2017-08-13 06:33] LABS: POINT-OF-CARE METER ID UU14314084
[2017-08-13 07:28] VITALS: BP 129/65
[2017-08-13 11:34] VITALS: BP 123/62
[2017-08-13 11:57] LABS: POINT-OF-CARE METER ID UU14314084
[2017-08-13 16:03] VITALS: BP 95/53
[2017-08-13 16:17] LABS: POINT-OF-CARE METER ID UU14314084
[2017-08-13 19:16] VITALS: BP 95/50
[2017-08-13 21:32] LABS: POINT-OF-CARE METER ID UU14314084
[2017-08-13 23:47] VITALS: BP 101/53
[2017-08-14 03:39] VITALS: BP 109/58
[2017-08-14 06:45] LABS: POINT-OF-CARE METER ID UU14314084
[2017-08-14 07:25] VITALS: BP 91/52
[2017-08-14 08:41] LABS: BASOPHIL COUNT 0.1 K/uL (0-0.1); EOSINOPHIL (%) 4.2 % (0-5); EOSINOPHIL COUNT 0.4 K/uL (0-0.3); HEMATOCRIT 32.6 % (36.0-46.0); IMMATURE GRANULOCYTE (%) 0.2 % (0.0-0.7); INSTRUMENT ABS NEUTROPHIL CT 4.3 K/uL; LYMPHOCYTE COUNT 2.5 K/uL (1.0-2.8); MCH 27.4 PG (29.0-34.0); MCHC 31.9 G/DL (30.0-36.0); MCV 85.8 FL (83-99); MEAN PLAT.VOLUME 8.9 uM^3 (9.5-12.4); MONOCYTE (%) 14.4 % (3-12); MONOCYTE COUNT 1.2 K/uL (0-0.8); NEUTROPHIL (%) 51.3 % (45-76); NEUTROPHIL COUNT 4.3 K/uL (1.8-6.4); PLATELET COUNT 354 K/uL (156-360); RBC DIS.WIDTH-CV 16.3 % (11.8-14.6); RBC DIS.WIDTH-SD 51.1 % (39-53); WHITE BLOOD COUNT 8.4 K/uL (4.1-10.2)
[2017-08-14 08:56] LABS: ANION GAP 9 MEQ/L (2-14); CHLORIDE 97 MEQ/L (99-109); GFR ESTIMATE (CALCULATED) 42 mL/min/; GLUCOSE 149 mg/dL (70-99); POTASSIUM 3.8 MEQ/L (3.7-5.4); SAMPLE HEMOLYSIS CHECK 0; SAMPLE ICTERIC CHECK 0; SAMPLE LIPEMIA CHECK 0; SODIUM 142 MEQ/L (136-147); UREA NITROGEN (BUN) 31 mg/dL (9-23)
[2017-08-14 11:55] VITALS: BP 95/60
[2017-08-14 12:52] LABS: POINT-OF-CARE METER ID UU14314084
[2017-08-14 15:38] VITALS: BP 105/51
[2017-08-14 17:14] LABS: POINT-OF-CARE METER ID UU14162508
[2017-08-14 20:24] VITALS: BP 108/56
[2017-08-14 21:29] LABS: POINT-OF-CARE METER ID UU14314084
[2017-08-15 00:05] VITALS: BP 126/58
[2017-08-15 04:23] VITALS: BP 108/51
[2017-08-15 06:51] LABS: POINT-OF-CARE METER ID UU14208750
[2017-08-15 07:40] LABS: BASOPHIL COUNT 0.1 K/uL (0-0.1); EOSINOPHIL (%) 3.6 % (0-5); EOSINOPHIL COUNT 0.3 K/uL (0-0.3); HEMATOCRIT 31.8 % (36.0-46.0); IMMATURE GRANULOCYTE (%) 0.4 % (0.0-0.7); INSTRUMENT ABS NEUTROPHIL CT 4.6 K/uL; LYMPHOCYTE COUNT 2.7 K/uL (1.0-2.8); MCH 28.1 PG (29.0-34.0); MCHC 32.7 G/DL (30.0-36.0); MCV 85.9 FL (83-99); MEAN PLAT.VOLUME 9.3 uM^3 (9.5-12.4); MONOCYTE (%) 15.5 % (3-12); MONOCYTE COUNT 1.4 K/uL (0-0.8); NEUTROPHIL (%) 50.7 % (45-76); NEUTROPHIL COUNT 4.6 K/uL (1.8-6.4); PLATELET COUNT 338 K/uL (156-360); RBC DIS.WIDTH-CV 16.5 % (11.8-14.6); RBC DIS.WIDTH-SD 52.4 % (39-53); WHITE BLOOD COUNT 9.1 K/uL (4.1-10.2)
[2017-08-15 08:30] LABS: ANION GAP 8 MEQ/L (2-14); CHLORIDE 94 MEQ/L (99-109); GFR ESTIMATE (CALCULATED) 46 mL/min/; GLUCOSE 144 mg/dL (70-99); POTASSIUM 3.7 MEQ/L (3.7-5.4); SAMPLE HEMOLYSIS CHECK 0; SAMPLE ICTERIC CHECK 0; SAMPLE LIPEMIA CHECK 0; SODIUM 137 MEQ/L (136-147); UREA NITROGEN (BUN) 33 mg/dL (9-23)
[2017-08-15 09:04] VITALS: BP 127/60
[2017-08-15 09:53] VITALS: BP 111/58
[2017-08-15] MEDS ORDERED: PREDNISONE10 MG PO (10:26)
[2017-08-15] MEDS ORDERED: KEFLEX500 MG PO (10:26)
[2017-08-15 11:30] LABS: POINT-OF-CARE METER ID UU14208750
[2017-08-15 12:11] VITALS: BP 98/55
== END 2017-08-15 15:27 | disposition home health service (06) | DRG 602 ==
LOC: EME 16:11 → 2EASTP 20:02 → EDOF 20:02 → ENRESERV 20:14 → 2EASTP 20:33 → EDOF 20:39 → ENRESERV 20:40 → 2EASTP 22:31
PROVIDERS: Hospitalist; Internal Medicine; Physician Assistant; Physician Assistant Medical
DX: L03.115 Cellulitis of right lower limb (principal); I50.33 Acute on chronic diastolic (congestive) heart failure; J18.9 Pneumonia, unspecified organism; L97.919 Non-pressure chronic ulcer of unspecified part of right lower leg with unspecified severity; I13.0 Hypertensive heart and chronic kidney disease with heart failure and stage 1 through stage 4 chronic kidney disease, or unspecified chronic kidney disease; L03.116 Cellulitis of left lower limb; L89.152 Pressure ulcer of sacral region, stage 2; L89.322 Pressure ulcer of left buttock, stage 2; E11.622 Type 2 diabetes mellitus with other skin ulcer; E11.65 Type 2 diabetes mellitus with hyperglycemia; Z66 Do not resuscitate; F33.9 Major depressive disorder, recurrent, unspecified; M10.9 Gout, unspecified; N18.3 Chronic kidney disease, stage 3 (moderate); M19.90 Unspecified osteoarthritis, unspecified site; E11.22 Type 2 diabetes mellitus with diabetic chronic kidney disease; I34.0 Nonrheumatic mitral (valve) insufficiency; I35.0 Nonrheumatic aortic (valve) stenosis; I44.7 Left bundle-branch block, unspecified; G89.29 Other chronic pain; E78.5 Hyperlipidemia, unspecified; I25.10 Atherosclerotic heart disease of native coronary artery without angina pectoris; I27.20 Pulmonary hypertension, unspecified; I48.0 Paroxysmal atrial fibrillation; I48.2 Chronic atrial fibrillation; I87.8 Other specified disorders of veins; K21.9 Gastro-esophageal reflux disease without esophagitis; E66.3 Overweight; Z87.891 Personal history of nicotine dependence; Z79.4 Long term (current) use of insulin; Z86.73 Personal history of transient ischemic attack (TIA), and cerebral infarction without residual deficits; Z91.11 Patient's noncompliance with dietary regimen; I25.2 Old myocardial infarction; Z95.5 Presence of coronary angioplasty implant and graft; Z90.49 Acquired absence of other specified parts of digestive tract; Z87.440 Personal history of urinary (tract) infections; Z87.11 Personal history of peptic ulcer disease; Z68.24 Body mass index [BMI] 24.0-24.9, adult
CPT/HCPCS: 71020; 80048; 81003; 82948; 83605; 83735; 84484; 85025; 85379; 87040; 93005; 93970; 93971; 97530 GP; 99202; 99281; 99285; J0692; J0696; J1815; J1940; J7030; J7512